=== PATIENT | female | born 1935 | race Caucasian/White ===

== ENCOUNTER → 2024-02-18 12:33 | Outpatient (BNVA) | payer MEDICARE, OTHER, SELFPAY | PROVIDERS: PCP Family Medicine; Visit Provider Internal Medicine | DX: E11.9 Type 2 diabetes mellitus without complications (principal) | CPT/HCPCS: 36415; 80053; 80061; 83036 ==

== ENCOUNTER 2024-02-20 10:18 | Outpatient (CLI) | payer MEDICARE, OTHER, SELFPAY ==
[2024-02-20 12:01] LABS: Microalbumin Random Urine 1 ug/dL (0-20)
[2024-02-20 12:09] LABS: Creatinine Urine, Random 4 mg/dL (28-217); Microalbum Creatinine Ratio Ur 250 mg/dL (0-20)
== END 2024-02-20 10:19 | disposition home or self-care (01) ==
LOC: LAB 10:19
PROVIDERS: PCP Family Medicine; Visit Provider Internal Medicine
DX: E11.9 Type 2 diabetes mellitus without complications (principal)
CPT/HCPCS: 82044

== ENCOUNTER → 2024-03-05 11:28 | Outpatient (BNVA) | payer MEDICARE, OTHER, SELFPAY | PROVIDERS: PCP Family Medicine; Visit Provider Internal Medicine | DX: E11.9 Type 2 diabetes mellitus without complications (principal); E78.2 Mixed hyperlipidemia; Z79.4 Long term (current) use of insulin | CPT/HCPCS: 99214 ==

== ENCOUNTER 2024-07-28 09:33 | Outpatient (CLI) | payer MEDICARE, OTHER, SELFPAY ==
[2024-07-28 10:35] LABS: Alanine Aminotransferase 19 U/L (0-33); Albumin Level 4.2 g/dL (3.5-5.2); Alkaline Phosphatase 72 U/L (35-105); Anion Gap 15.4 (5-19); Aspartate Amino Transferase 17 U/L (0-32); Blood Urea Nitrogen 20 mg/dL (8-23); Calcium 8.9 mg/dL (8.5-10.5); Carbon Dioxide 23 mmol/L (22-29); Chloride 107 mmol/L (98-107); Chol HDL Ratio 2.94 mg/dL (0.0-4.40); Cholesterol 182 mg/dL (0-200); Glucose 158 mg/dL (65-115); HDL Cholesterol 62 mg/dL (60-100); LDL Cholesterol Calculated 102 mg/dL (50-129); LDL HDL Ratio 1.65 RATIO (0.00-3.22); Osmolality Calculated 298 mOsm/kg (285-295); Potassium 4.4 mmol/L (3.5-5.1); Sodium 141 mmol/L (136-145); Total Bilirubin 0.3 mg/dL (0.15-1.2); Total Protein 7.2 g/dL (6.6-8.7); Triglycerides 91 mg/dL (0-150)
[2024-07-28 11:39] LABS: Estmated Average Glucose 169; Hemoglobin A1C 7.5 % (4.0-6.0)
== END 2024-07-28 09:34 | disposition home or self-care (01) ==
PROVIDERS: PCP Family Medicine; Visit Provider Internal Medicine
DX: E11.9 Type 2 diabetes mellitus without complications (principal); E78.2 Mixed hyperlipidemia
CPT/HCPCS: 36415; 80053; 80061; 83036; 99214

== ENCOUNTER → 2024-10-28 12:57 | Outpatient (BNVA) | payer MEDICARE, OTHER, SELFPAY | PROVIDERS: PCP Family Medicine; Visit Provider Internal Medicine | DX: E11.9 Type 2 diabetes mellitus without complications (principal); E78.2 Mixed hyperlipidemia | CPT/HCPCS: 36415; 80053; 80061; 82947; 83036; 84681; 86337; 86341; 99214 ==

== ENCOUNTER → 2025-01-17 11:35 | Outpatient (BNVA) | payer MEDICARE, OTHER, SELFPAY | PROVIDERS: PCP Family Medicine; Visit Provider Internal Medicine | DX: E10.8 Type 1 diabetes mellitus with unspecified complications (principal); E78.2 Mixed hyperlipidemia | CPT/HCPCS: 99214 ==

== ENCOUNTER → 2025-03-07 10:58 | Outpatient (BNVA) | payer MEDICARE, OTHER, SELFPAY | PROVIDERS: PCP Family Medicine; Visit Provider Internal Medicine | DX: E11.65 Type 2 diabetes mellitus with hyperglycemia (principal); E78.2 Mixed hyperlipidemia; Z79.4 Long term (current) use of insulin | CPT/HCPCS: 99214 ==